=== PATIENT | female | born 1945 | race African-American/Black ===

== ENCOUNTER 2017-01-20 08:06 | Emergency (ER) | payer MEDICARE, MEDICAID ==
[2017-01-20 13:16] VITALS: BP 135/108
--- NOTE | 2017-01-20 13:51 | NUR ---
SOCIAL SERVICE NOTE: FOLLOWED ON REQUEST TO ASSIST THIS PT IN THE ED. PT IS HOMELESS AND HAS BEEN LIVING ON THE STREETS FOR AN EXTENDED PERIOD AND WOULD LIKE ASSISTANCE FINDING A NURSING HOME OR OTHER TYPE OF HOUSING. I MET WITH HER AT BEDSIDE. SHE WAS ALERT, ORIENTED AND COOPERATIVE WITH THE INTERVIEW. SHE REPORTED A HX OF MENTAL ILLNESS BUT HAS NOT TAKEN HER MEDICATIONS IN A "LONG TIME".SHE DOES NOT KNOW WHERE HER FAMILY IS AND HAS NOT HAD ANY RECENT CONTACT WITH THEM. SHE COULD NOT PROVIDE ANY CONTACT INFORMATION. I REVIEWED HER OPTIONS WHICH WERE AN EMERGENCY NURSING HOME (WITH NO [place] THAT SHE WILL GET IN) OR A ROOM AND BOARD WHICH WILL CHARGE HER A MONTHLY FEE. SHE INITIALLY WANTED A NURSING HOME BUT ONCE SHE UNDERSTOOD THAT SHE WOULD BE DISCHARGED BACK TO THE STREET EVERY MORNING, SHE AGREED TO CONSIDER A ROOM AND BOARD. SHE REPORTS THAT SHE GETS A SOCIAL SECURITY CHECK OF $973/MONTH AND WANTS A PLACE THAT CHARGES LESS THAN THIS SO THAT SHE CAN KEEP SOME "SPENDING" MONEY FOR HER "PERSONAL NEEDS". I CALLED [facility] IN THE [facility]. PT WAS ACCEPTED BY LORI MATTHEWS AT &[facility], [address] [place] [address], . SHE WILL BE CHARGING THE PT $700/MONTH AND THE HOME IS NEAR [facility]. THEY WILL ASSIST THE PT IN GETTING HER PRESCRIPTIONS FILLED. I OFFERED TO HAVE HER SPEAK WITH THE PT OVER THE PHONE TO ENSURE THAT ANY QUESTIONS/CONCERNS WERE ADDRESSED AND THIS WAS DONE. PT HAS AGREED TO GO TO THIS HOME AND SHE WAS GIVEN CLEAN CLOTHES AND A CAB VOUCHER TO TRANSPORT HER TO [place]. NURSING MADE AWARE. CAB PICK-UP SCHEDULED FOR APPROXIMATELY 1400. NO FURTHER FOLLOW-UP NEEDED AT THIS TIME. [facility]
== END 2017-01-20 13:55 | disposition home or self-care (01) ==
LOC: ED 08:06
DX: G89.29 Other chronic pain (principal); M54.9 Dorsalgia, unspecified; R03.0 Elevated blood-pressure reading, without diagnosis of hypertension; M19.90 Unspecified osteoarthritis, unspecified site

== ENCOUNTER 2019-03-12 14:49 | Emergency (ER) | payer MEDICARE, OTHER ==
[~2019-03-12] VITALS: Ht 165.1 cm; Wt 83.0 kg
[2019-03-12 15:06] VITALS: Ht 165.1 cm; Wt 83.0 kg
[2019-03-12 15:16] LABS: PLATELET COUNT 273 x10^3mcL (130-400)
[2019-03-12 15:17] LABS: RED CELL DISTRIBUTION WIDTH 17.8 % (11.5-14.5)
[2019-03-12 15:29] LABS: CALCIUM 9.2 mg/dL (8.5-10.1); CARBON DIOXIDE 24.4 mmol/L (21-32); CHLORIDE SERUM 108 mmol/L (98-107); CREATININE SERUM 0.8 mg/dL (0.6-1.0); GLUCOSE SERUM 73 mg/dL (74-106); POTASSIUM SERUM 3.8 mmol/L (3.5-5.1); SODIUM SERUM 147 mmol/L (136-145)
[2019-03-12 15:32] LABS: MAGNESIUM 1.7 mg/dL (1.8-2.4); PHOSPHOROUS 4.6 mg/dL (2.5-4.9)
[2019-03-12 15:37] LABS: BAND NEUTROPHIL 1 % (0-10); BASOPHIL 0 % (0-2); MONOCYTE 10 % (0-7); PLATELET MORPHOLOGY PLATELETS NORMAL; SEGMENTED NEUTROPHILS 53 % (37-75); rbc morphology (normal/abnorm) ABNORMAL (NORMAL)
[2019-03-13 17:30] VITALS: BP 125/76
== END 2019-03-13 17:30 | disposition home or self-care (01) ==
LOC: ED 14:49
PROVIDERS: Emergency Medicine
DX: R53.1 Weakness (principal); F32.9 Major depressive disorder, single episode, unspecified; M19.90 Unspecified osteoarthritis, unspecified site
CPT/HCPCS: 36415; 82962; Q0092